=== PATIENT | female | born 1945 | race African-American/Black ===

== ENCOUNTER 2016-12-09 10:35 | Emergency (ER) | payer OTHER, MEDICARE ==
[~2016-12-09] VITALS: Ht 175.3 cm; Wt 80.0 kg
[~2016-12-09 10:35] MED LIST: AMLO2.5T PO; ASPI1TAB69 PO; BUTA1CAP PO; CALCCHW3 CHEW; DICL75TA PO; FERR325T PO; NITR1SUB3 SL; ROSU20 PO; VITA100064 PO
[2016-12-09 10:37] VITALS: BP 163/81; PULSE 71; RESP 15; TEMP 98; O2SAT 99
--- NOTE | 2016-12-09 11:15 | PD ---
HPI Chief Complaint: Pain: Acute or Chronic Time Seen by Provider: 11:15 Travel History International Travel<30 days: No Contact w/Intl Traveler<30days: No Traveled to known affect area: No PFSH Past Medical History Hx Anticoagulant Therapy: Yes (ASA 81MG ) Arthritis: Yes Heart Rhythm Problems: No Cardiac Catheterization: Yes (STENT x1 ) Cardiovascular Problems: Yes High Cholesterol: Yes Chemotherapy: No Congestive Heart Failure: No Cerebrovascular Accident: Yes Diabetes: No Diminished Hearing: No Hypertension: No Respiratory: No Immunizations Current: Yes Migraines: Yes Myocardial Infarction: No Menopausal: Yes : 6 Para: 6 Miscarriage: 0 : 0 Past Surgical History Abdominal Surgery: Yes (COLON RESECTION FOR POLYPS) Cardiac Surgery: Yes (stents 2007) Section: Yes (X1) Coronary Artery Bypass Graft: No Coronary Stent: Yes (X1 2007) Gynecologic Surgery: Yes () Hysterectomy: No Other Surgery: Yes (c section) Social History Alcohol Use: No Tobacco Use: No Substance Use: No Allergies-Medications (Allergen,Severity, Reaction): Coded Allergies: No Known Allergies (Verified , 12/09/16) Reported Meds & Prescriptions Reported Meds & Active Scripts Active Diclofenac Sodium DR (Diclofenac Sodium) 75 Mg Tabdr 75 Mg PO BID Ferrous Sulfate 325 Mg Tab 325 Mg PO DAILY Aspirin 81 Mg Tabdr 81 Mg PO DAILY Amlodipine (Amlodipine Besylate) 2.5 Mg Tab 2.5 Mg PO DAILY Fioricet (Plzxfcfoez-Fzfnewuwymcyu-Groacklm) 50-300-40 Mg Cap 1 Cap PO Q4H PRN Crestor (Rosuvastatin Calcium) 20 Mg Tab 20 Mg PO DAILY Reported Nitroglycerin SL (Nitroglycerin) 0.4 Mg Subl 0.4 Mg SL DIRECTED PRN ONE TABLET UNDER THE TONGUE NEEDED FOR CHEST PAIN, MAY REPEAT EVERY FIVE MINUTES FOR A TOTAL OF 3 DOSES OR CALL 911 IF NO RELIEF Vitamin D (Cholecalciferol) 1,000 Unit Tab 1,000 Units PO DAILY Calci-Chew (Calcium Carbonate) 1,250 Mg Chew 1,250 Mg CHEW 1,250 mg calcium carbonate (500 mg elemental calcium) Data Data Last Documented VS Vital Signs Date Time Temp Pulse Resp B/P Pulse Ox O2 Delivery O2 Flow Rate FiO2 12/09/16 10:37 98.0 71 15 163/81 99 George Campbell Dec 09, 2016 11:15
--- NOTE | 2016-12-09 11:40 | PD ---
Physical Exam Date Seen by Provider: Dec 09, 2016 Time Seen by Provider: 11:38 Narrative 71-year-old Afro-[place]ian female presents the emergency Department with one week history of progressively worsening left-sided hip and sacral pain. Patient denies specific injury. She denies numbness or tingling. Patient states she is unable to bear weight today. Rates her pain is 10 over 10 with any type of weightbearing. She denies weakness in the lower extremity. She denies saddle numbness or bowel or bladder issues. Patient has history of a stroke in the past which effected her right side, but she is almost completely improved from this. Her only other significant medical history of hypertension and high cholesterol. She has no known drug allergies. Data Data Last Documented VS Vital Signs Date Time Temp Pulse Resp B/P Pulse Ox O2 Delivery O2 Flow Rate FiO2 12/09/16 10:37 98.0 71 15 163/81 99 MDM Medical Record Reviewed: Yes Supervised Visit with LINCOLN: Yes Condition: Stable George Campbell Dec 09, 2016 11:40
[2016-12-09] MEDS ORDERED: ASPI81CH3 PO (12:08)
[2016-12-09] MEDS ORDERED: FERR324T4 PO (12:09)
--- NOTE | 2016-12-09 12:09 | PD ---
HPI Chief Complaint: Pain: Acute or Chronic Time Seen by Provider: 11:37 Travel History International Travel<30 days: No Contact w/Intl Traveler<30days: No Traveled to known affect area: No History of Present Illness HPI This is a 71-year-old female who presents to the emergency department with 4 days of left-sided pain starting in her left buttock and radiating down her left leg and moving around her knee, throbbing, intermittent, worse with walking , improved with rest. She denies any associated numbness or weakness. She has not lost her bowels or bladder. She denies any injuries. She takes diclofenac for pain but this hasn't been helping. She's been having difficulty bearing weight on it today. PFSH Past Medical History Hx Anticoagulant Therapy: Yes (ASA 81MG ) Arthritis: Yes Heart Rhythm Problems: No Cardiac Catheterization: Yes Cardiovascular Problems: Yes High Cholesterol: Yes Chemotherapy: No Congestive Heart Failure: No Cerebrovascular Accident: Yes (2007) Diabetes: No Diminished Hearing: No Hypertension: Yes Respiratory: No Immunizations Current: Yes Migraines: Yes Myocardial Infarction: No Menopausal: Yes : 6 Para: 6 Miscarriage: 0 : 0 Past Surgical History Abdominal Surgery: Yes (COLON RESECTION FOR POLYPS) Cardiac Surgery: Yes (stents 2007) Section: Yes (X1) Coronary Artery Bypass Graft: No Coronary Stent: Yes (X1 2007) Gynecologic Surgery: Yes () Hysterectomy: No Other Surgery: Yes (c section) Social History Alcohol Use: No Tobacco Use: No Substance Use: No Allergies-Medications (Allergen,Severity, Reaction): Coded Allergies: No Known Allergies (Verified , 12/09/16) Reported Meds & Prescriptions Reported Meds & Active Scripts Active Diclofenac Sodium DR (Diclofenac Sodium) 75 Mg Tabdr 75 Mg PO BID Amlodipine (Amlodipine Besylate) 2.5 Mg Tab 2.5 Mg PO DAILY Fioricet (Tiuxrmthco-Lcsfigilpthpu-Iuixwglw) 50-300-40 Mg Cap 1 Cap PO Q4H PRN Crestor (Rosuvastatin Calcium) 20 Mg Tab 20 Mg PO DAILY Reported Ferrous Sulfate DR (Ferrous Sulfate) 324 Mg Tabdr 324 Mg PO DAILY Aspirin 81 Low Dose (Aspirin) 81 Mg Chew 81 Mg PO DAILY Nitroglycerin SL (Nitroglycerin) 0.4 Mg Subl 0.4 Mg SL DIRECTED PRN ONE TABLET UNDER THE TONGUE NEEDED FOR CHEST PAIN, MAY REPEAT EVERY FIVE MINUTES FOR A TOTAL OF 3 DOSES OR CALL 911 IF NO RELIEF Vitamin D (Cholecalciferol) 1,000 Unit Tab 1,000 Units PO DAILY Review of Systems Except as stated in HPI: all other systems reviewed are Neg Physical Exam Narrative GENERAL:Well appearing, no acute distress SKIN: Focused skin assessment warm and dry. HEAD: Atraumatic. Normocephalic. EYES: Pupils equal and round. No injection or drainage. ENT: Moist mucous membranes NECK: Trachea midline. CARDIOVASCULAR: Regular rate and rhythm. No murmur appreciated. Both legs are warm and well perfused. RESPIRATORY: Clear to auscultation. Breath sounds equal bilaterally. GASTROINTESTINAL: Abdomen soft, non-tender, nondistended. MUSCULOSKELETAL: Painless range of motion of the left hip, some pain with straight leg raise on the left, able to raise right leg without difficulty. No focal tenderness in the lumbar spine. NEUROLOGICAL: Awake and alert. No obvious cranial nerve deficits. Moving all extremities. PSYCHIATRIC: Appropriate mood and affect; insight and judgment normal. Data Data Last Documented VS Vital Signs Date Time Temp Pulse Resp B/P Pulse Ox O2 Delivery O2 Flow Rate FiO2 12/09/16 10:37 98.0 71 15 163/81 99 Orders Spine, Lumbar - Ltd (Ap & Lat) (12/09/16 ) Hip, Uni(Ap&Lat) Wo Ap Pelvis (12/09/16 ) Hydromorphone Pf Inj (Dilaudid Pf Inj) (12/09/16 12:15) Ketorolac Inj (Toradol Inj) (12/09/16 12:15) MDM Medical Decision Making Medical Screen Exam Complete: Yes Emergency Medical Condition: Yes Interpretation(s) afebrile, no tachycardia, hypertensive Differential Diagnosis Sciatica, compression fracture, metastatic disease, cauda equina syndrome Narrative Course This is a 71-year-old female who presents to the emergency department with left hip pain, radiating down the left leg suggestive of a lumbosacral radiculopathy. X-rays of the hip and back were obtained which demonstrate no acute fracture or bony metastatic disease. She has a normal neurovascular exam. I think she would benefit from steroids, pain control and possible physical therapy. I asked her to follow up with her primary care physician if her pain isn't improving. She does have a scheduled appointment with orthopedics on Tuesday. Diagnosis Primary Impression: Osteoarthritis of left hip Qualified Code: M16.12 - Primary osteoarthritis of left hip Additional Impression: Degenerative disc disease, lumbar Patient Instructions: General Instructions Additional Instructions: If you develop weakness of your legs, difficulty walking, numbness of your legs or your genital or rectal area, loss of your bowel or bladder, or difficulty urinating return to the emergency department immediately. Followup with your primary care physician in one week if your symptoms have not improved. Med/Other Pt SpecificInfo: Prescription(s) given Scripts Tramadol 50 Mg Tab50 Mg PO Q6H PRN (PAIN) #12 TAB Ref 0 Prov:Rina Liang MD 12/09/16 Prednisone (48) 10 mg tab Dose Pack 10 Mg Dspk10 Mg PO DIRECTED #1 DSPK Ref 0 Prov:Rina Liang MD 12/09/16 Disposition: 01 DISCHARGE HOME Condition: Stable Rina Liang MD Dec 09, 2016 12:09
[2016-12-09] MEDS ORDERED: KETOROLAC TROMETHAMINE 60 MG/2 ML (IM) VIAL IM ONE (12:15)
[2016-12-09] MEDS ORDERED: HYDROmorphone HCL PF 1 MG/ML VIAL IM ONE (12:15)
--- NOTE | 2016-12-09 12:49 | RADRPT ---
EXAM DATE/TIME: 12/09/2016 12:25 [facility] COMPARISON: No previous studies available for comparison. INDICATIONS : Left hip pain with no trauma. MEDICAL HISTORY : None. SURGICAL HISTORY : None. ENCOUNTER: Initial ACUITY: 4 - 6 days PAIN SCORE: 10/10 LOCATION: Left hip FINDINGS: AP and lateral views of the left hip demonstrate no fracture or dislocation. Mineralization is within normal limits. There is medial and superior left hip joint space narrowing with acetabular and femor al head osteophytes and subchondral sclerosis of the acetabulum. Pelvic bones demonstrate no acute fi nding. No soft tissue abnormalities visualized. Bowel staple line overlies the sacrum. CONCLUSION: No acute left hip abnormality is identified. There is moderate to severe left hip joint osteoarthriti sNeto Mari MD on December 09, 2016 at 12:47 Board Certified Radiologist. This report was verified electronically.
--- NOTE | 2016-12-09 12:51 | RADRPT ---
EXAM DATE/TIME: 12/09/2016 12:28 [facility] COMPARISON: No previous studies available for comparison. INDICATIONS : Left hip pain with no trauma. MEDICAL HISTORY : None. SURGICAL HISTORY : None. ENCOUNTER: Initial ACUITY: 1 week PAIN SCORE: 10/10 LOCATION: Left lower back FINDINGS: 3 views of the lumbar spine demonstrate 5 nonrib-bearing lumbar vertebral bodies. The bones appear mi ldly undermineralized. No fracture or compression deformity is identified. There is a minimal anterol isthesis of L4 relationship to the adjacent vertebral bodies. Decreased disc height is present at L4- L5 and L5-S1 with endplate osteophytes. There is facet hypertrophy at L4-L5 and L5-S1. Pelvic bones and soft tissues demonstrate no acute finding. CONCLUSION: Degenerative disc disease at L4-L5 and L5-S1 without an acute abnormality identified. Juaquin Mari MD on December 09, 2016 at 12:48 Board Certified Radiologist. This report was verified electronically.
[2016-12-09] MEDS ORDERED: TRAM50TA PO (13:05)
[2016-12-09] MEDS ORDERED: PRED10PA2 PO (13:05)
== END 2016-12-09 13:44 | disposition home or self-care (01) ==
LOC: NEPD 10:35
DX: M16.12 Unilateral primary osteoarthritis, left hip (principal); M51.36 Other intervertebral disc degeneration, lumbar region; Z79.82 Long term (current) use of aspirin; E78.00 Pure hypercholesterolemia, unspecified; Z86.73 Personal history of transient ischemic attack (TIA), and cerebral infarction without residual deficits; I10 Essential (primary) hypertension; Z95.9 Presence of cardiac and vascular implant and graft, unspecified
CPT/HCPCS: 72100; 73502; 96372; 99284; J1170; J1885

== ENCOUNTER 2017-04-28 14:30 | Observation (INO) | payer MEDICARE, OTHER ==
[~2017-04-28] VITALS: Ht 175.3 cm; Wt 80.0 kg
[2017-04-28] VITALS (8 sets, daily range): BP systolic 118–132; BP diastolic 73–80; PULSE 62–82; RESP 14–18; TEMP 98.2–98.3; O2SAT 96–100
[~2017-04-28 14:30] MED LIST changes: -ASPI1TAB69 PO; +ASPI81CH3 PO; -CALCCHW3 CHEW; +FERR324T4 PO; -FERR325T PO; +PRED10PA2 PO; +TRAM50TA PO
--- NOTE | 2017-04-28 14:55 | PD ---
HPI Chief Complaint: Numbness/Tingling Time Seen by Provider: 14:49 Travel History International Travel<30 days: No Contact w/Intl Traveler<30days: No Traveled to known affect area: No History of Present Illness HPI 71-year-old female came to the emergency room with history of left-sided chest pain going down her left arm while she was standing at her work. 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 This happened about 1 hour prior to coming to the emergency room. Patient says that she took 2 of her nitroglycerin pills sublingual which made the pain get a little bit better. Patient sat down and the pain subsided a little further. At that point she decided to come to the emergency room. Currently she says her pain is 6 out of 10. She did not take aspirin today. Patient had a stroke in the past and her primary care had given her nitroglycerin. Patient has never had any coronary artery disease or any workup for coronary artery disease. This patient has never happened to her before. No exacerbating or relieving factors identified. No history of nausea vomiting. No history of shortness of breath. Patient was a little bit lightheaded. She says that her primary care recently changed some of her medications. She stopped her amlodipine since it was giving her ankle swelling and she hasn't taken amlodipine in one week. She is in stead started on lisinopril. Pain is sharp in nature going from the left side of her chest to the left armpit and down her left arm. PFSH Past Medical History Narrative Medical List of her past medical, surgical, social and family history is reviewed from the nursing note. Hx Anticoagulant Therapy: Yes (ASA 81MG ) Arthritis: Yes Heart Rhythm Problems: No Cardiac Catheterization: Yes Cardiovascular Problems: Yes High Cholesterol: Yes Chemotherapy: No Congestive Heart Failure: No Cerebrovascular Accident: Yes Diabetes: Yes Diminished Hearing: No Hypertension: Yes Respiratory: No Immunizations Current: Yes Migraines: Yes Myocardial Infarction: No Menopausal: Yes : 6 Para: 6 Miscarriage: 0 : 0 Past Surgical History Abdominal Surgery: Yes (COLON RESECTION FOR POLYPS) Cardiac Surgery: Yes (stents 2007) Section: Yes (X1) Coronary Artery Bypass Graft: No Coronary Stent: Yes (X1 2007) Gynecologic Surgery: Yes () Hysterectomy: No Other Surgery: Yes (c section) Social History Alcohol Use: No Tobacco Use: No Substance Use: No Allergies-Medications (Allergen,Severity, Reaction): Coded Allergies: No Known Allergies (Verified , 12/09/16) Comments List of her allergies reviewed from the nursing note. Reported Meds & Prescriptions Reported Meds & Active Scripts Active Tramadol (Tramadol HCl) 50 Mg Tab 50 Mg PO Q6H PRN Prednisone (48) 10 mg tab Dose Pack (Prednisone) 10 Mg Dspk 10 Mg PO DIRECTED Diclofenac Sodium DR (Diclofenac Sodium) 75 Mg Tabdr 75 Mg PO BID Fioricet (Gpwjgkqvoy-Lcwfedaotvyvq-Hhmmevzk) 50-300-40 Mg Cap 1 Cap PO Q4H PRN Crestor (Rosuvastatin Calcium) 20 Mg Tab 20 Mg PO DAILY Reported Ferrous Sulfate DR (Ferrous Sulfate) 324 Mg Tabdr 324 Mg PO DAILY Aspirin 81 Low Dose (Aspirin) 81 Mg Chew 81 Mg PO DAILY Nitroglycerin SL (Nitroglycerin) 0.4 Mg Subl 0.4 Mg SL DIRECTED PRN ONE TABLET UNDER THE TONGUE NEEDED FOR CHEST PAIN, MAY REPEAT EVERY FIVE MINUTES FOR A TOTAL OF 3 DOSES OR CALL 911 IF NO RELIEF Vitamin D3 (Cholecalciferol) 1,000 Unit Tab 1,000 Units PO DAILY Narrative Medication List of her home medications reviewed from the nursing note. Review of Systems Except as stated in HPI: all other systems reviewed are Neg Cardiovascular: Positive: Chest Pain or Discomfort Physical Exam Narrative GENERAL: Awake, alert, no obvious distress SKIN: Focused skin assessment warm/dry. HEAD: Atraumatic. Normocephalic. EYES: Pupils equal and round. No scleral icterus. No injection or drainage. ENT: No nasal bleeding or discharge. Mucous membranes pink and moist. NECK: Trachea midline. No JVD. CARDIOVASCULAR: Regular rate and rhythm. No murmur appreciated. RESPIRATORY: No accessory muscle use. Clear to auscultation. Breath sounds equal bilaterally. GASTROINTESTINAL: Abdomen soft, non-tender, nondistended. Hepatic and splenic margins not palpable. MUSCULOSKELETAL: No obvious deformities. No clubbing. No cyanosis. No edema. NEUROLOGICAL: Awake and alert. No obvious cranial nerve deficits. Motor grossly within normal limits. Normal speech. PSYCHIATRIC: Appropriate mood and affect; insight and judgment normal. Data Data Last Documented VS Vital Signs Date Time Temp Pulse Resp B/P (MAP) Pulse Ox O2 Delivery O2 Flow Rate FiO2 04/28/17 16:22 63 132/80 (97) 127/73 (91) 04/28/17 16:19 18 98 Room Air 04/28/17 14:33 98.2 Orders Orders Electrocardiogram (04/28/17 15:05) Basic Metabolic Panel (Bmp) (04/28/17 15:05) Ckmb (Isoenzyme) Profile (04/28/17 15:05) Complete Blood Count With Diff (04/28/17 15:05) Magnesium (Mg) (04/28/17 15:05) Prothrombin Time / Inr (Pt) (04/28/17 15:05) Act Partial Throm Time (Ptt) (04/28/17 15:05) Troponin I (04/28/17 15:05) Chest, Single Ap (04/28/17 15:05) Ecg Monitoring (04/28/17 15:05) Bilateral Bp Monitoring (04/28/17 15:05) Iv Access Insert/Monitor (04/28/17 15:05) Oximetry (04/28/17 15:05) Oxygen Administration (04/28/17 15:05) Aspirin Chew (Aspirin Chew) (04/28/17 15:15) Sodium Chloride 0.9% Flush (Ns Flush) (04/28/17 15:15) Admit Order (Ed Use Only) (04/28/17 16:48) Place In Observation (04/28/17 16:49) Activity Bed Rest With Brp (04/28/17 16:49) Vital Signs (Adult) Q4H (04/28/17 16:49) Cardiac Rhythm .As Directed (04/28/17 16:49) Notify Dr: Other .PRN (04/28/17 16:49) Notify Dr. Parameters (04/28/17 16:49) Resp Oxygen Nasal Cannula (04/28/17 ) Diet Heart Healthy (04/28/17 Dinner) Ckmb (Isoenzyme) Profile (04/28/17 16:49) Ckmb (Isoenzyme) Profile (04/28/17 19:49) Troponin I (04/28/17 16:49) Troponin I (04/28/17 19:49) Electrocardiogram (04/28/17 16:49) Electrocardiogram (04/28/17 19:49) ^ Obtain (04/28/17 16:49) Sodium Chloride 0.9% Flush (Ns Flush) (04/28/17 17:00) Sodium Chloride 0.9% Flush (Ns Flush) (04/28/17 21:00) Acetaminophen (Tylenol) (04/28/17 17:00) Ondansetron Inj (Zofran Inj) (04/28/17 17:00) Nitroglycerin Sl (Nitrostat Sl) (04/28/17 17:00) Technology Advisor / Telemetry HOME.Q8H (04/28/17 16:49) Labs Laboratory Tests Test 04/28/17 15:30 White Blood Count 3.8 TH/MM3 Red Blood Count 4.02 MIL/MM3 Hemoglobin 11.3 GM/DL Hematocrit 33.9 % Mean Corpuscular Volume 84.4 FL Mean Corpuscular Hemoglobin 28.2 PG Mean Corpuscular Hemoglobin Concent 33.4 % Red Cell Distribution Width 14.9 % Platelet Count 204 TH/MM3 Mean Platelet Volume 7.8 FL Neutrophils (%) (Auto) 55.7 % Lymphocytes (%) (Auto) 35.3 % Monocytes (%) (Auto) 5.8 % Eosinophils (%) (Auto) 2.9 % Basophils (%) (Auto) 0.3 % Neutrophils # (Auto) 2.1 TH/MM3 Lymphocytes # (Auto) 1.4 TH/MM3 Monocytes # (Auto) 0.2 TH/MM3 Eosinophils # (Auto) 0.1 TH/MM3 Basophils # (Auto) 0.0 TH/MM3 CBC Comment DIFF FINAL Differential Comment Prothrombin Time 11.1 SEC Prothromb Time International Ratio 1.0 RATIO Activated Partial Thromboplast Time 24.5 SEC Blood Urea Nitrogen 12 MG/DL Creatinine 0.69 MG/DL Random Glucose 87 MG/DL Calcium Level 8.6 MG/DL Magnesium Level 2.0 MG/DL Sodium Level 140 MEQ/L Potassium Level 4.0 MEQ/L Chloride Level 106 MEQ/L Carbon Dioxide Level 28.0 MEQ/L Anion Gap 6 MEQ/L Estimat Glomerular Filtration Rate 101 ML/MIN Total Creatine Kinase 68 U/L Troponin I LESS THAN 0.02 NG/ML MDM Medical Decision Making Medical Screen Exam Complete: Yes Emergency Medical Condition: Yes Medical Record Reviewed: Yes Interpretation(s) Twelve-lead EKG is reviewed by me. Normal sinus rhythm, normal axis, nonspecific ST-T wave changes. Heart rate of 66 bpm. Differential Diagnosis ACS, non-STEMI, nonspecific chest pain Narrative Course 4:53 PM blood test results of back and within acceptable limits. Given patient' s age and existing medical history including hypertension and hyperlipidemia and the nature of the pain I would like her to be admitted to the chest pain center so that she can be ruled out by the flame annealing machine operator for ACS. I've discussed this with the patient and she understands. Procedures EKG Prior to Arrival: No Diagnosis Primary Impression: Chest pain Qualified Codes: R07.9 - Chest pain, unspecified Admitting Information Admitting Physician Requests: Observation Qian Parada MD Apr 28, 2017 14:55
[2017-04-28] MEDS ORDERED: SODIUM CHLORIDE 0.9% FLUSH 10 ML FLUSH IVF PRN (15:15)
[2017-04-28] MEDS ORDERED: ASPIRIN 81 MG CHEW TAB PO ONE (15:15)
--- NOTE | 2017-04-28 15:45 | RADRPT ---
EXAM DATE/TIME: 04/28/2017 15:19 [facility] COMPARISON: CHEST SINGLE AP, May 28, 2016, 5:01. INDICATIONS : Chest pain and tingling down left arm. MEDICAL HISTORY : Cerebrovascular accident. Cardiovascular disease. High cholesterol. Migraines. SURGICAL HISTORY : section. Colon resection for polyps. Coronary stents. ENCOUNTER: Initial ACUITY: 1 day PAIN SCORE: 4/10 LOCATION: Bilateral chest FINDINGS: A single view of the chest demonstrates the lungs to be symmetrically aerated without evidence of mas s, infiltrate or effusion. The cardiomediastinal contours are unremarkable. Osseous structures are intact. CONCLUSION: No acute disease. No significant change has occurred. Tom Oscar MD on April 28, 2017 at 15:43 Board Certified Radiologist. This report was verified electronically.
[2017-04-28 15:58] LABS: AUTOMATED NEUTROPHIL # 2.1 TH/MM3 (1.8-7.7); BASOPHIL % 0.3 % (0.0-2.0); EOSINOPHIL # 0.1 TH/MM3 (0-0.4); EOSINOPHIL % 2.9 % (0.0-4.0); HEMATOCRIT 33.9 % (35.0-46.0); HEMO FLAGS DIFF FINAL; LYMPH % 35.3 % (9.0-44.0); LYMPHOCYTE # 1.4 TH/MM3 (1.0-4.8); MEAN CELL VOLUME 84.4 FL (80.0-100.0); MEAN CORPUSCULAR HEMOGLOBIN 28.2 PG (27.0-34.0); MEAN CORPUSCULAR HGB CONC 33.4 % (32.0-36.0); MONO % 5.8 % (0.0-8.0); NEUT % 55.7 % (16.0-70.0); PLATELET COUNT 204 TH/MM3 (150-450); RED BLOOD COUNT 4.02 MIL/MM3 (4.00-5.30); RED CELL DISTRIBUTION WIDTH 14.9 % (11.6-17.2); WHITE BLOOD COUNT 3.8 TH/MM3 (4.0-11.0)
[2017-04-28 16:13] LABS: APTT (PATIENT) 24.5 SEC (24.3-30.1); PROTHROMBIN TIME - PATIENT 11.1 SEC (9.8-11.6)
[2017-04-28 16:35] LABS: ANION GAP 6 MEQ/L (5-15); BLOOD UREA NITROGEN 12 MG/DL (7-18); CHLORIDE 106 MEQ/L (98-107); GLOMERULAR FILTRATION RATE 101 ML/MIN (>89); SODIUM (NA) 140 MEQ/L (136-145)
[2017-04-28 16:41] LABS: CREATINE KINASE 68 U/L (26-192)
[2017-04-28] MEDS ORDERED: NITROGLYCERIN 0.4 MG SL 25 TABS/BTL SL PRN (17:00)
[2017-04-28] MEDS ORDERED: SODIUM CHLORIDE 0.9% FLUSH 10 ML FLUSH IV FLUSH PRN (17:00)
[2017-04-28] MEDS ORDERED: ACETAMINOPHEN 500 MG CPLT PO PRN (17:00)
[2017-04-28] MEDS ORDERED: ONDANSETRON HCL 4 MG/2 ML VIAL IV PUSH PRN (17:00)
[2017-04-28 19:24] LABS: CREATINE KINASE 68 U/L (26-192)
[2017-04-28] MEDS: SODIUM CHLORIDE 0.9% FLUSH 10 ML FLUSH IV FLUSH SCH (21:22)
[2017-04-28 22:25] LABS: CREATINE KINASE 56 U/L (26-192)
[2017-04-29 03:36] VITALS: BP 134/82; PULSE 60; RESP 18; TEMP 98.1; O2SAT 99
[2017-04-29 04:04] VITALS: PULSE 62
[2017-04-29 07:13] VITALS: PULSE 58; PULSE 61
[2017-04-29 07:51] VITALS: BP 130/84; PULSE 63; RESP 18; TEMP 98; O2SAT 99
--- NOTE | 2017-04-29 08:34 | HHI.HP ---
[facility] Primary Care Physician Donna Pineda D.O. Chief Complaint Left arm pain History of Present Illness 71-year-old female with history of coronary artery disease, times one cardiac stent, and CVA presents to emergency room for further evaluation of left arm pain. Onset between 11:30-1200 p.m. yesterday while working. 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 Location left arm. Characterized as a gradual throbbing shooting pain to forearm and tingling in hand. No radiation of pain. Movement did not make pain better or worse. Duration continued throughout evening, waxing and waning severity. Denied any chest pain, discomfort, or pressure. Currently left arm pain-free, stating "once I woke up pain resolved." No associated symptoms of nausea, vomiting, diaphoresis, dyspnea, or weakness of arm. Denied any weakness or having similar pain in the past. No known injury, trauma, or recent fall. Denies any remote injury to neck, left shoulder , or left arm. No known precipitating or relieving factors. Took total of 2 nitro sublingual tablets without relief. Normally does not require the use of nitro sublingual tablets. Reports past cardiac pain as left anterior chest pain , not similar to current discomfort. Review of Systems General: No fatigue,weakness, fever, chills, recent illness, or change in appetite. No recent trauma, injury, or fall. Has been in her general state of health. HEENT: No ANGEL, no vision changes, no nasal congestion or drainage CV: As stated above. Never had any chest pain, discomfort, or pressure. No current CP, discomfort, or pressure. RESP: No SOB, cough, recent URI, or history of asthma. GI: No nausea, vomiting, or bowel changes. Intentional weight loss of 10 pounds after diagnoses of diabetes. Reports changing diet, avoiding sugar, sugary drinks, and increasing daily activity. Quit taking Metformin due to GI upset and diarrhea. : No dysuria, urgency, or frequency. Denies being prone to frequent UTI and kidney stones. EXT: No lower leg edema, no paraesthesias MS: No discomfort or change in ROM. NEURO: History of CVA 2007 with deficit of right lower leg "drags" when she is tired or have walked far. Uses a cane upon waking only, otherwise independently ambulates. No LOC or motor/sensory deficits. PSYCH: No anxiety, depression, or situational stress. SKIN: No rashes, no concerning lesions Past Family Social History Allergies: Coded Allergies: No Known Allergies (Verified , 12/09/16) Past Medical History CAD, x1 cardiac stents (2007), CVA (2007), HLD, migraines, osteoarthritis, diabetes type 2 (recently told, reporting "borderline") Past Surgical History Small bowel resection-(1970), (1977) Reported Medications Reported Meds & Active Scripts Active Fioricet (Iplwtautqj-Luqfndmjtjepr-Iqwtwvpj) 50-300-40 Mg Cap 1 Cap PO Q4H PRN Crestor (Rosuvastatin Calcium) 20 Mg Tab 20 Mg PO DAILY Ferrous Sulfate DR (Ferrous Sulfate) 324 Mg Tabdr 324 Mg PO DAILY Aspirin 81 Low Dose (Aspirin) 81 Mg Chew 81 Mg PO DAILY Nitroglycerin SL (Nitroglycerin) 0.4 Mg Subl 0.4 Mg SL DIRECTED PRN ONE TABLET UNDER THE TONGUE NEEDED FOR CHEST PAIN, MAY REPEAT EVERY FIVE MINUTES FOR A TOTAL OF 3 DOSES OR CALL 911 IF NO RELIEF Vitamin D3 (Cholecalciferol) 1,000 Unit Tab 1,000 Units PO DAILY Lisinopril 10mg PO daily Active Ordered Medications Current Medications Medications (Trade) Dose Ordered Sig/Derek Route Start Time Stop Time Status Last Admin (NS Flush) 2 ml UNSCH PRN IV FLUSH 04/28/17 17:00 (NS Flush) 2 ml BID IV FLUSH 04/28/17 21:00 04/28/17 21:22 (Tylenol) 500 mg Q4H PRN PO 04/28/17 17:00 (Zofran Inj) 4 mg Q6H PRN IV PUSH 04/28/17 17:00 (Nitrostat Sl) 0.4 mg Q5M PRN SL 04/28/17 17:00 (Aspirin) 325 mg DAILY PO 04/29/17 09:00 Family History Noncontributory for early onset cardiovascular disease. Both mother and father had MIs in their 80s. Social History Known hyperlipidemia and coronary artery disease. Recently placed on metformin and lisinopril for "borderline diabetes." Denies history of hypertension. Lifelong nonsmoker. Denies any alcohol or illegal drug use. 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 Endorses an active lifestyle. Currently working for [employer] 4 hours/daily as a parimutuel cashier because she was "bored after long term." Past cardiac testing 09/26/13 Lexiscan-normal examination. No evidence of stress-induced or fixed perfusion abnormalities. EF 60%. 09/16/2007 Cardiac catheterization (Dr. Wetzel)-Impression: 1. Severe disease of first diagonal. 2. Successful stenting of the diagonal. 3. Mild disease of LAD, circumflex and right coronary artery. 4. Normal left ventricular function. Currently does not follow with a hadoop java developer, reports haven't seen hadoop java developer "in a while" but is scheduled to establish with Dr. Molina due to insurance changes. Physical Exam Vital Signs Vital Signs Date Time Temp Pulse Resp B/P (MAP) Pulse Ox O2 Delivery O2 Flow Rate FiO2 04/29/17 07:51 98.0 63 18 130/84 (99) 99 04/29/17 07:13 61 04/29/17 04:04 62 04/29/17 03:36 98.1 60 18 134/82 (99) 99 04/28/17 23:58 62 04/28/17 23:18 98.2 64 18 118/75 (89) 04/28/17 19:29 98.3 82 18 132/74 (93) 99 04/28/17 19:15 99 04/28/17 17:13 100 21 04/28/17 16:22 63 132/80 (97) 127/73 (91) 04/28/17 16:19 82 18 98 Room Air 04/28/17 16:19 18 97 Room Air 04/28/17 16:19 97 Room Air 04/28/17 14:33 98.2 67 14 128/77 (94) 96 Physical Exam GENERAL: Alert WN, WD, NAD, pleasant, female who appears younger than stated age. HEAD: NC, AT EYES: Sclera clear, conjunctiva without injection ENT: Mucous membranes pink and moist NECK: Supple, no masses, trachea midline CV: RRR, without murmur, rub, gallop, no JVD, S1-S2 no S3-S4. No carotid or femoral bruits. Chest wall nontender with palpation. RESP: Clear lungs throughout bilateral, no crackles, wheeze, rhonchi, symmetrical chest rise, nonlabored, able to speak in full sentences ABD: Soft, NT, ND, no masses, positive bowel tones EXT: Pulses +24, no dependent edema MS: Normal tone 4 extremities, nontender with passive range of motion of left arm, shoulder, or neck. no obvious deformities, full range of motion NEURO: CN II through CN XII grossly intact, motor strength 5/5 PSYCH: A+O 3, pleasant affect, appropriate speech, appropriate mood and affect , insight and judgment SKIN: Normal turgor, normal texture, no lesions, no rashes, brisk cap refill Laboratory Laboratory Tests Test 04/28/17 15:30 04/28/17 18:12 04/28/17 21:22 White Blood Count 3.8 Red Blood Count 4.02 Hemoglobin 11.3 Hematocrit 33.9 Mean Corpuscular Volume 84.4 Mean Corpuscular Hemoglobin 28.2 Mean Corpuscular Hemoglobin Concent 33.4 Red Cell Distribution Width 14.9 Platelet Count 204 Mean Platelet Volume 7.8 Neutrophils (%) (Auto) 55.7 Lymphocytes (%) (Auto) 35.3 Monocytes (%) (Auto) 5.8 Eosinophils (%) (Auto) 2.9 Basophils (%) (Auto) 0.3 Neutrophils # (Auto) 2.1 Lymphocytes # (Auto) 1.4 Monocytes # (Auto) 0.2 Eosinophils # (Auto) 0.1 Basophils # (Auto) 0.0 CBC Comment DIFF FINAL Differential Comment Prothrombin Time 11.1 Prothromb Time International Ratio 1.0 Activated Partial Thromboplast Time 24.5 Blood Urea Nitrogen 12 Creatinine 0.69 Random Glucose 87 Calcium Level 8.6 Magnesium Level 2.0 Sodium Level 140 Potassium Level 4.0 Chloride Level 106 Carbon Dioxide Level 28.0 Anion Gap 6 Estimat Glomerular Filtration Rate 101 Total Creatine Kinase 68 68 56 Troponin I LESS THAN 0.02 LESS THAN 0.02 LESS THAN 0.02 Result Diagram: 04/28/17 1530 04/28/17 1530 Imaging Last Impressions Myocardial Perfusion Scan Nuc Med 04/29/17 0000 Signed Impressions: Service Date/Time: Saturday, April 29, 2017 09:34 - CONCLUSION: Unremarkable myocardial perfusion study. RISK CATEGORY: Low Tom Oscar MD Chest X-Ray 04/28/17 1505 Signed Impressions: Service Date/Time: April 15:19 - CONCLUSION: No acute disease. No significant change has occurred. Tom Oscar MD Course EKG Normal sinus rhythm, normal axis, nonspecific T-wave changes Caprini VTE Risk Assessment Caprini VTE Risk Assessment: Mod/High Risk (score >= 2) Caprini Risk Assessment Model Point Value = 1 Point Value = 2 Point Value = 3 Point Value = 5 Age 41-60 Minor surgery BMI > 25 kg/m2 Swollen legs Varicose veins or History of unexplained or recurrent spontaneous Oral contraceptives or hormone replacement Sepsis (< 1 month) Serious lung disease, including pneumonia (< 1 month) Abnormal pulmonary function Acute myocardial infarction Congestive heart failure (< 1 month) History of inflammatory bowel disease Medical patient at bed rest Age 61-74 Arthroscopic surgery Major open surgery (> 45 min) Laparoscopic surgery (> 45 min) Malignancy Confined to bed (> 72 hours) Immobilizing plaster cast Central venous access Age >= 75 History of VTE Family history of VTE Factor V Leiden Prothrombin [id number] Lupus anticoagulant Anticardiolipin antibodies Elevated serum homocysteine Heparin-induced thrombocytopenia Other congenital or acquired thrombophilia Stroke (< 1 month) Elective arthroplasty Hip, pelvis, or leg fracture Acute spinal cord injury (< 1 month) Prophylaxis Regimen Total Risk Factor Score Risk Level Prophylaxis Regimen 0-1 Low Early ambulation 2 Moderate Order ONE of the following: *Sequential Compression Device (SCD) *Heparin 5000 units SQ BID 3-4 Higher Order ONE of the following medications: *Heparin 5000 units SQ TID *Enoxaparin/Lovenox 40 mg SQ daily (WT < 150 kg, CrCl > 30 mL/min) *Enoxaparin/Lovenox 30 mg SQ daily (WT < 150 kg, CrCl > 10-29 mL/min) *Enoxaparin/Lovenox 30 mg SQ BID (WT < 150 kg, CrCl > 30 mL/min) AND/OR *Sequential Compression Device (SCD) 5 or more Highest Order ONE of the following medications: *Heparin 5000 units SQ TID (Preferred with Epidurals) *Enoxaparin/Lovenox 40 mg SQ daily (WT < 150 kg, CrCl > 30 mL/min) *Enoxaparin/Lovenox 30 mg SQ daily (WT < 150 kg, CrCl > 10-29 mL/min) *Enoxaparin/Lovenox 30 mg SQ BID (WT < 150 kg, CrCl > 30 mL/min) AND *Sequential Compression Device (SCD) Assessment and Plan Assessment and Plan #1 Cervical radiculopathy-admitted to chest pain center. Denied any chest pain , pressure, or discomfort. Ruled out with 3 sets of EKGs, cardiac enzymes, and monitored with telemetry overnight. Seen and evaluated by Dr. Eder Donald. Will complete chemical stress test due to history of coronary artery disease although presentation highly unlikely to be cardiac related. Pain has completely resolved. Discussed possible cervical radiculopathy likely with presenting symptoms of shooting arm pain and numbness/tingling of wrist and hand. Plans to discharge later this afternoon if chemical test unremarkable. Patient agreeable to plan of care. #2 History of coronary artery disease-continue aspirin and Crestor. No beta darell on home medication list. Reports 3 of her medications not listed on current medication list. No plans to change any of her cardiac medications. Discussed importance of follow-up with cardiology. #3 Diabetes type 2-continue with lifestyle and dietary modifications. Education provided diabetes is a progressive disease and to notify her PCP she is not taking Metformin. Discussed importance of tight blood sugar control. Random glucose 87 on laboratory. #4 Hypertension-continue to monitor. Patient unsure if she has been diagnosed with hypertension and expresses concern over taking lisinopril. Discussed current guidelines with diagnoses of diabetes which includes SELWYN inhibitor. Kristal Lamb Apr 29, 2017 08:34
[2017-04-29] MEDS ORDERED: ATORVASTATIN 40 MG TAB PO SCH (09:00)
[2017-04-29] MEDS ORDERED: ASPIRIN 325 MG TAB PO SCH (09:00)
[2017-04-29] MEDS ORDERED: CHOLECALCIFEROL (VIT D3) 1000 UNIT TAB PO SCH (09:00)
[2017-04-29] MEDS ORDERED: FERROUS SULFATE 325 MG (65 MG ELEMENTAL IRON) TAB PO SCH (09:15)
[2017-04-29] MEDS ORDERED: REGADENOSON INJ 0.4 MG/5 ML SYR ONE (10:31)
[2017-04-29] MEDS ORDERED: LISI10TA3 PO (10:38)
--- NOTE | 2017-04-29 11:33 | RADRPT ---
EXAM DATE/TIME: 04/29/2017 09:34 [facility] COMPARISON: MYOCARDIAL PERF PHARM SPECT, GATED W/EF, September 26, 2013, 11:03. INDICATIONS : Left sided chest pain radiating to left arm. Angina. Myocardial infarction. DOSE: 25.4 mCi Tc99m Myoview at stress. 8.3 mCi Tc99m Myoview at rest. 0.4 mg Lexiscan STRESS SYMPTOMS: Dyspnea. EJECTION FRACTION: 63% MEDICAL HISTORY : Hypertension. SURGICAL HISTORY : Coronary artery stent. Colon resection. section. ENCOUNTER: Initial ACUITY: 1 day PAIN SCALE: 6/10 LOCATION: Left chest TECHNIQUE: The patient underwent pharmacologic stress with infusion of prescribed dose. Continuous ECG tracing was monitored during stress. Gated SPECT imaging was performed after stress and conventional SPECT i maging was performed at rest. The examination was performed on a SPECT/CT scanner, both attenuation and non-corrected datasets were reviewed. FINDINGS: DISTRIBUTION: The maximum perfused segment at stress is in the lateral wall. PERFUSION STUDY: The pattern of perfusion at stress is within normal limits. GATED STUDY: There is intact wall motion and thickening without hypokinetic or dyskinetic segments. CONCLUSION: Unremarkable myocardial perfusion study. RISK CATEGORY: Low Tom Oscar MD on April 29, 2017 at 11:31 Board Certified Radiologist. This report was verified electronically.
[2017-04-29] MEDS: SODIUM CHLORIDE 0.9% FLUSH 10 ML FLUSH IV FLUSH SCH (11:43)
[2017-04-29 11:54] VITALS: BP 126/76; PULSE 63; RESP 15; TEMP 98.1; O2SAT 99
--- NOTE | 2017-04-29 12:35 | HHI.DCPOC ---
Discharge Care Plan Diagnosis: (1) Hx of coronary artery disease (2) Atypical chest pain (3) Arm pain, left (4) History of stroke Goals to Promote Your Health * To prevent worsening of your condition and complications * To maintain your health at the optimal level Directions to Meet Your Goals Take your medications as prescribed Follow your dietary instruction Follow activity as directed Keep your appointments as scheduled Take your immunizations and boosters as scheduled If your symptoms worsen call your PCP, if no PCP go to Urgent Care Center or Emergency Room Smoking is Dangerous to Your Health. Avoid second hand smoke Call the 24-hour hour crisis hotline for domestic abuse at Kristal Lamb Apr 29, 2017 12:35
--- NOTE | 2017-04-29 14:00 | TR ---
Date Performed: 04/29/2017 Time Performed: 10:30:07 DOCTOR: Eder Donald DRUG LIST: ZOFRan CLINICAL HISTORY: HTN CVA 2007 REASON FOR TEST: Angina REASON FOR ENDING: OBSERVATION: CONCLUSION: Lexiscan stress test was performed under standard four minute protocol. Radionuclid e was injected one minute prior to ending the test. No electrocardiographic abormalities were present to suggest ischemia. Nuclear imaging and interpretation are pending. COMMENTS:
--- NOTE | 2017-04-29 14:04 | EKG ---
Date Performed: 04/28/2017 Time Performed: 21:38:09 PTAGE: 71 years EKG: Sinus rhythm NONSPECIFIC T-WAVE ABNORMALITY BORDERLINE ECG PREVIOUS TRACING : 04/28/2017 18.26 Since previous tracing, no significant change noted DOCTOR: Eder Donald Interpretating Date/Time 04/29/2017 14:02:41
--- NOTE | 2017-04-29 14:06 | EKG ---
Date Performed: 04/28/2017 Time Performed: 18:26:05 PTAGE: 71 years EKG: Sinus rhythm NORMAL ECG PREVIOUS TRACING : 04/28/2017 15.12 Compared to previous tracing, T wave changes have resolved. DOCTOR: Eder Donald Interpretating Date/Time 04/29/2017 14:04:48
--- NOTE | 2017-04-29 14:07 | EKG ---
Date Performed: 04/28/2017 Time Performed: 15:12:37 PTAGE: 71 years EKG: Sinus rhythm WITH SINUS ARRHYTHMIA NONSPECIFIC T-WAVE ABNORMALITY BORDERLINE ECG PREVIOUS TRACING : 05/28/2016 04.56 Since previous tracing, no significant change noted DOCTOR: Eder Donald Interpretating Date/Time 04/29/2017 14:05:48
== END 2017-04-29 14:45 | disposition home or self-care (01) ==
LOC: NEPE 14:30 → NEDA 16:50 → NEPFCDU 17:45
PROVIDERS: ADMIT Internal Medicine Interventional Cardiology; ATTEND Internal Medicine Interventional Cardiology
DX: R07.9 Chest pain, unspecified (principal); I25.10 Atherosclerotic heart disease of native coronary artery without angina pectoris; M54.12 Radiculopathy, cervical region; R42 Dizziness and giddiness; E78.00 Pure hypercholesterolemia, unspecified; E11.9 Type 2 diabetes mellitus without complications; I10 Essential (primary) hypertension; Z79.82 Long term (current) use of aspirin; R94.31 Abnormal electrocardiogram [ECG] [EKG]; M79.602 Pain in left arm; Z86.73 Personal history of transient ischemic attack (TIA), and cerebral infarction without residual deficits; Z95.5 Presence of coronary angioplasty implant and graft
CPT/HCPCS: 71010; 78452; 80048; 82550; 83735; 84484; 85025; 85610; 85730; 93005; 93017; 99285; A9502; G0378; J2785

== ENCOUNTER 2017-11-20 00:22 | Emergency (ER) | payer MEDICARE, MEDICAID ==
[~2017-11-20] VITALS: Ht 175.3 cm; Wt 75.0 kg
[~2017-11-20 00:22] MED LIST changes: -AMLO2.5T PO; +ASPI1CHW4 PO; -ASPI81CH3 PO; -DICL75TA PO; +LISI10TA3 PO; -PRED10PA2 PO; -TRAM50TA PO
[2017-11-20 00:30] VITALS: BP 156/79; PULSE 79; RESP 18; TEMP 98.5; O2SAT 98
[2017-11-20] MEDS ORDERED: FLUORESCEIN SOD 1 MG STRIP EACH EYE ONE (01:30)
[2017-11-20] MEDS ORDERED: TETRACAINE 0.5% OPTH SOLN 2 ML BTL EACH EYE ONE (01:30)
[2017-11-20] MEDS ORDERED: TRAM50TA PO (02:18)
[2017-11-20] MEDS ORDERED: OCUF0.3D EACH EYE (02:18)
--- NOTE | 2017-11-20 02:19 | PD ---
HPI Chief Complaint: Eye Problems/Injury Time Seen by Provider: 01:11 Travel History International Travel<30 days: No Contact w/Intl Traveler<30days: No Traveled to known affect area: No History of Present Illness HPI 71-year-old female arrives the left eye pain swelling redness and tearing. It started about 24 hours ago when she applied mascara to the left eyelash. She believes she may have a foreign body in the left eye. Pain is moderate to severe constant. She tried flushing it with eyedrops and water however it was not helpful. PFSH Past Medical History Hx Anticoagulant Therapy: Yes (ASA 81MG ) Arthritis: Yes Heart Rhythm Problems: No Cardiac Catheterization: Yes Cardiovascular Problems: Yes (HTN) High Cholesterol: Yes Chemotherapy: No Chest Pain: Yes Congestive Heart Failure: No Cerebrovascular Accident: Yes Diabetes: Yes Patient Takes Glucophage: No Diminished Hearing: No Endocrine: Yes Gastrointestinal Disorders: Yes (COLON RESECTION) Genitourinary: No Heparin Induced Thrombocytopen: No Hypertension: Yes Immune Disorder: No Musculoskeletal: No Neurologic: Yes (STROKE, MIGRAINE) Psychiatric: No Reproductive: No Respiratory: No Immunizations Current: Yes Migraines: Yes Myocardial Infarction: No Tetanus Vaccination: Unknown Influenza Vaccination: No ?: Not LMP: menapause Menopausal: Yes : 6 Para: 6 Miscarriage: 0 : 0 Past Surgical History Abdominal Surgery: Yes (COLON RESECTION FOR POLYPS) Cardiac Surgery: Yes (stents 2007) Section: Yes (X1) Coronary Artery Bypass Graft: No Coronary Stent: Yes (X1 2007) Gynecologic Surgery: Yes () Hysterectomy: No Other Surgery: Yes (c section) Social History Alcohol Use: Yes (on occasion ) Tobacco Use: No Substance Use: No Allergies-Medications (Allergen,Severity, Reaction): Coded Allergies: No Known Allergies (Verified Adverse Reaction, Unknown, 11/20/17) Reported Meds & Prescriptions Reported Meds & Active Scripts Active Tramadol (Tramadol HCl) 50 Mg Tab 100 Mg PO Q6H PRN Ocuflox Opth Drops (Ofloxacin Opth Drops) 0.3 % Drops 1 Drop EACH EYE Q4HR 7 Days Aspirin 81 Low Dose (Aspirin) 81 Mg Chew 81 Mg PO DAILY Fioricet (Mbeseudjqb-Llpuqrogyimwz-Uxgjqmwa) 50-300-40 Mg Cap 1 Cap PO Q4H PRN Crestor (Rosuvastatin Calcium) 20 Mg Tab 20 Mg PO DAILY Reported Lisinopril 10 Mg Tab 10 Mg PO DAILY Ferrous Sulfate DR (Ferrous Sulfate) 324 Mg Tabdr 324 Mg PO DAILY Nitroglycerin SL (Nitroglycerin) 0.4 Mg Subl 0.4 Mg SL DIRECTED PRN ONE TABLET UNDER THE TONGUE NEEDED FOR CHEST PAIN, MAY REPEAT EVERY FIVE MINUTES FOR A TOTAL OF 3 DOSES OR CALL 911 IF NO RELIEF Vitamin D3 (Cholecalciferol) 1,000 Unit Tab 1,000 Units PO DAILY Review of Systems Except as stated in HPI: all other systems reviewed are Neg Eyes: Positive: Blurred Vision, Photophobia, Drainage, Redness, Foreign Body Sensation, No: Diploplia Physical Exam Narrative GENERAL: Pleasant 71-year-old female no acute distress Vital Signs Date Time Temp Pulse Resp B/P (MAP) Pulse Ox O2 Delivery O2 Flow Rate FiO2 11/20/17 00:30 98.5 79 18 156/79 (104) 98 SKIN: Warm and dry. HEAD: Normocephalic. EYES: No scleral icterus. No injection or drainage. Significant some conjunctival erythema throughout the left eye. Profuse clear discharge. On forcing staining there is a 1-2 mm somewhat irregularly shaped corneal abrasion overlying the 3 o'clock position on the iris. No foreign body visualized on either side. Right eye is unremarkable. NECK: Supple, trachea midline. No JVD or lymphadenopathy. CARDIOVASCULAR: Regular rate and rhythm without murmurs, gallops, or rubs. Data Data Last Documented VS Vital Signs Date Time Temp Pulse Resp B/P (MAP) Pulse Ox O2 Delivery O2 Flow Rate FiO2 11/20/17 00:30 98.5 79 18 156/79 (104) 98 Orders Orders Tetracaine 0.5% Opht Soln (Pontocaine 0. (11/20/17 01:30) Fluorescein Strip (Jtslx-Q-Ukixcg A.T.) (11/20/17 01:30) Ed Discharge Order (11/20/17 02:17) Tetanus/Diphtheria Tox Adult (Tetanus/Di (11/20/17 02:30) Ofloxacin 0.3% Opth Soln (Ocuflox 0.3% O (11/20/17 02:30) MDM Medical Decision Making Medical Screen Exam Complete: Yes Emergency Medical Condition: Yes Medical Record Reviewed: Yes Differential Diagnosis Corneal abrasion, rust ring, foreign body Narrative Course Fluorescein staining was performed and we see a corneal abrasion at 3:00 in the left eye. Scripts as below. The corneal abrasion is very small overall and ophthalmology referral is not necessary in this scenario. Diagnosis Primary Impression: Corneal abrasion, left Qualified Codes: S05.02XA - Injury of conjunctiva and corneal abrasion without foreign body, left eye, initial encounter Referrals: Zeinab Forbes MD call for appointment Med/Other Pt SpecificInfo: Prescription(s) given Scripts Tramadol (Tramadol) 50 Mg Tab 100 MG PO Q6H Y for PAIN, #20 TAB 0 Refills Prov: Shay Al MD 11/20/17 Ofloxacin Opth Drops (Ocuflox Opth Drops) 0.3 % Drops 1 DROP EACH EYE Q4HR for Infection for 7 Days, #1 BOTTLE 0 Refills Prov: Shay Al MD 11/20/17 Disposition: 01 DISCHARGE HOME Condition: Stable Shay Al MD November 20, 2017 02:19
[2017-11-20] MEDS ORDERED: OFLOXACIN 0.3% OPTH SOLN 5 ML BTL EACH EYE ONE (02:30)
[2017-11-20] MEDS ORDERED: TETANUS/DIPHTHERIA TOXOID ADULT 0.5 ML VIAL IM ONE (02:30)
== END 2017-11-20 03:51 | disposition home or self-care (01) ==
LOC: NEPE 00:22
DX: S05.02XA Injury of conjunctiva and corneal abrasion without foreign body, left eye, initial encounter (principal); Y93.89 Activity, other specified; Z23 Encounter for immunization; I10 Essential (primary) hypertension; E78.00 Pure hypercholesterolemia, unspecified; E11.9 Type 2 diabetes mellitus without complications; Z86.73 Personal history of transient ischemic attack (TIA), and cerebral infarction without residual deficits; Z95.5 Presence of coronary angioplasty implant and graft; Z79.82 Long term (current) use of aspirin; Z79.899 Other long term (current) drug therapy
CPT/HCPCS: 90471; 90714